=== PATIENT | male | born 1990 | race African-American/Black ===

== ENCOUNTER 2017-07-18 19:18 | Emergency (ER) | payer OTHER ==
[~2017-07-18] VITALS: Ht 175.3 cm; Wt 56.0 kg
[2017-07-18 19:58] LABS: BASOPHIL (%) 0.4 % (0-1); EOSINOPHIL (%) 4.2 % (0-5); EOSINOPHIL COUNT 0.3 K/uL (0-0.3); HEMATOCRIT 32.5 % (38.0-50.0); IMMATURE GRANULOCYTE (%) 0.3 % (0.0-0.7); LYMPHOCYTE COUNT 0.9 K/uL (1.0-2.8); MCH 32.2 PG (29.0-34.0); MCHC 33.8 G/DL (30.0-36.0); MONOCYTE (%) 9.4 % (3-12); MONOCYTE COUNT 0.6 K/uL (0-0.8); NEUTROPHIL (%) 72.7 % (45-76); NEUTROPHIL COUNT 4.9 K/uL (1.8-6.4); PLATELET COUNT 191 K/uL (156-360); RBC DIS.WIDTH-CV 11.9 % (11.8-14.6); RBC DIS.WIDTH-SD 41.7 % (39-53); RED BLOOD COUNT 3.42 M/uL (4.00-5.50); WHITE BLOOD COUNT 6.7 K/uL (4.1-10.2)
[2017-07-18 20:08] LABS: ALBUMIN 3.8 g/dL (3.2-4.8)
[2017-07-18 20:09] LABS: CHLORIDE 106 mEq/L (99-109); SODIUM 139 mEq/L (136-147)
[2017-07-18 20:11] LABS: GLUCOSE 82 mg/dL (70-99); TOTAL PROTEIN 6.2 g/dL (6.4-8.3)
[2017-07-18 20:13] LABS: TOTAL BILIRUBIN 0.2 mg/dL (0.0-1.0)
[2017-07-18 20:14] LABS: ALKALINE PHOSPHATASE 67 IU/L (3-129)
[2017-07-18 20:16] LABS: AST (GOT) 33 IU/L (2-34); UREA NITROGEN (BUN) 15 mg/dL (9-23)
[2017-07-18 20:17] LABS: GFR ESTIMATE (CALCULATED) > 59 mL/min/ (58.99-99999)
[2017-07-18 20:18] LABS: ALT (GPT) 22 IU/L (3-49)
[2017-07-19 00:12] VITALS: BP 135/70
== END 2017-07-19 00:14 ==
LOC: TRA 19:18 → EDBD 19:18 → EME 19:18 → TRA 07-19 00:14
PROVIDERS: Emergency Medicine
PROC: 3E0234Z Introduction of Serum, Toxoid and Vaccine into Muscle, Percutaneous Approach (ICD-10-PCS; principal; 2017-07-18)
PROC: 0HQ1XZZ Repair Face Skin, External Approach (ICD-10-PCS; principal; 2017-07-18)
DX: S01.81XA Laceration without foreign body of other part of head, initial encounter (principal); X99.8XXA Assault by other sharp object, initial encounter; Y92.149 Unspecified place in prison as the place of occurrence of the external cause; Z23 Encounter for immunization
CPT/HCPCS: 70487; 80053; 85025; 86850; 86900; 86901; 99281; 99285; J0690; J7030